=== PATIENT | female | born 1990 | race African-American/Black ===

== ENCOUNTER 2020-08-29 13:31 | Emergency (ER) | payer SELFPAY ==
[~2020-08-29] VITALS: Ht 162.6 cm; Wt 68.0 kg
[2020-08-29 13:37] VITALS: BP 127/70
[2020-08-29] MEDS ORDERED: IBUP-1653 PO (13:40)
[2020-08-29] MEDS ORDERED: IBUPROFEN 600MG TABLET PO ONE (14:15)
[2020-08-29] MEDS ORDERED: KETOROLAC 30MG/ML VIAL IM ONE (14:15)
[2020-08-29] MEDS ORDERED: AMOXICILLIN 500 MG CAPSULE PO ONE (14:15)
== END 2020-08-29 15:29 | disposition home or self-care (01) ==
LOC: ER 13:56
DX: S02.5XXA Fracture of tooth (traumatic), initial encounter for closed fracture (principal); W22.8XXA Striking against or struck by other objects, initial encounter; K08.89 Other specified disorders of teeth and supporting structures; Y93.89 Activity, other specified; Y92.89 Other specified places as the place of occurrence of the external cause; Y99.8 Other external cause status
CPT/HCPCS: 96372; 99283; J1885